=== PATIENT | female | born 1955 | race Caucasian/White ===

== ENCOUNTER 2018-06-03 15:40 | Observation (INO) | payer OTHER ==
[~2018-06-03 15:40] MED LIST: Ketorolac Tromethamine 30 MG/ML VIAL ONE; Ondansetron PF 4 MG/2 ML Vial ONE; PHENYLEPHRINE-NS 100 MCG/ML 10 ML SYRINGE ONE; PROPOFOL 200 MG/20 ML VIAL ONE; ePHEDrine/0.9% NaCl/PF SYRINGE 50 mg/10 ml ONE
[2018-06-03] MEDS ORDERED: Fentanyl 100 MCG/2 ML VIAL ONE ×3 (20:27→21:29)
[2018-06-03] MEDS ORDERED: Midazolam HCl 2 mg/2 ml Vial ONE ×3 (20:27→21:29)
[2018-06-03] MEDS ORDERED: Bupivacaine PF 0.5% 30 ML VIAL ONE (21:06)
[2018-06-03] MEDS ORDERED: Thrombin 5000 UNITS/5 ML VIAL ONE (21:06)
[2018-06-03] MEDS ORDERED: Bacitracin Zinc Ointment 30 gm TUBE ONE (21:06)
[2018-06-03] MEDS ORDERED: Sodium Chloride 0.9% 30 ML ONE (21:06)
[2018-06-03] MEDS ORDERED: Propofol 1,000 MG/100 ML VIAL IV ONE ×2 (21:08→21:29)
[2018-06-03] MEDS ORDERED: KETAMINE 100 MG/ML (5ML VIAL) ONE (21:08)
[2018-06-03] MEDS ORDERED: PROPOFOL 0 ML ONE (21:29)
[2018-06-03] MEDS ORDERED: Propofol 500 MG/50 ML VIAL ONE (21:29)
[2018-06-03] MEDS ORDERED: Famotidine/PF 20 mg/2ml Vial ONE (21:29)
[2018-06-03] MEDS ORDERED: CEFAZOLIN 2 GM/50 ML BAG ONE (21:33)
[2018-06-03] MEDS ORDERED: Promethazine HCl 25 MG/ML VIAL IM PRN (22:51)
[2018-06-03] MEDS ORDERED: Ondansetron HCl/PF 4 MG/2 ML Vial IVP PRN (22:51)
[2018-06-03] MEDS ORDERED: Promethazine HCl 25 MG/ML VIAL SLOW IVP PRN (22:51)
[2018-06-03] MEDS ORDERED: Meperidine HCl/PF 25 MG/ML VIAL SLOW IVP PRN (23:32)
--- NOTE | 2018-06-03 23:47 | RAD ---
RIGHT FIFTH DIGIT RADIOGRAPHS TWO VIEWS 06/03/18 PROVIDED CLINICAL HISTORY: Fracture. Fixation. FINDINGS: Spot fluoroscopic images of the right fifth digit demonstrates percutaneous pinning of fifth proximal phalangeal fracture. IMPRESSION: As above. POS: EDILMA
[2018-06-04] MEDS ORDERED: traMADol HCl 50 MG TAB PO PRN (00:19)
[2018-06-04] MEDS ORDERED: Ondansetron PF 4 MG/2 ML Vial IV PRN (00:19)
[2018-06-04] MEDS ORDERED: Acetaminophen 325 MG TAB PO PRN (00:19)
[2018-06-04] MEDS ORDERED: Milk Of Magnesia 30 ML UDCUP PO PRN (00:19)
[2018-06-04] MEDS ORDERED: Promethazine HCl 25 MG/ML VIAL IM PRN (00:19)
[2018-06-04] MEDS ORDERED: Bisacodyl 10 MG SUPP PR PRN (00:19)
[2018-06-04] MEDS ORDERED: HYDROcodone/Acetaminophen 5/325 mg Tablet PO PRN (00:19)
[2018-06-04] MEDS ORDERED: Meperidine HCl/PF 25 MG/ML VIAL IM PRN (00:22)
[2018-06-04] MEDS ORDERED: Communication Order-Pharmacy FS SCH (00:30)
[2018-06-04] MEDS ORDERED: TETANUS AND DIPHTHERIA TOX/PF 0.5 ML DISP.SYRIN IM SCH (00:30)
[2018-06-04] MEDS ORDERED: Morphine 4 MG/ML VIAL SLOW IVP PRN (01:00)
[2018-06-04] MEDS: Clindamycin/D5W 900 MG in Premix Bag 1 BAG IVPB SCH ×3 (02:05→17:03)
[2018-06-04 02:38] VITALS: BMI 28.3
[2018-06-04] MEDS: Ketorolac Tromethamine 30 MG/ML VIAL IVP SCH ×3 (06:25→17:04)
--- NOTE | 2018-06-04 07:03 | OP ---
DATE OF PROCEDURE: 06/03/2018 PREOPERATIVE DIAGNOSES: 1. Right small finger grade 2 proximal phalanx fracture secondary to a dog bite wound. 2. Partial extensor tendon laceration. 3. Intact flexor tendons. 4. Ulnar digital nerve laceration to mid portion of proximal phalanx. 5. Contamination of fracture. 6. Contamination of wound, palmar and dorsal with only a 15 mm skin bridge on the radial side of the small finger still intact. Here was a digital artery that kept the finger alive. PROCEDURES PERFORMED: 1. Debridement of wound. 2. Debridement of material associated with open fracture. 3. Open fracture treatment with fixation using K-wire x1. 4. Digital nerve neuroplasty of ulnar digital nerve. ANESTHESIA: General LMA technique augmented by block. DESCRIPTION OF PROCEDURE: After successful general LMA technique, the limb was prepped and draped. The patient then had time-out done appropriately. C-arm was brought to the field at this time, we first saw of angulation, but had a large palmar, which was extended, and then from here, we could visualize the fracture and we did that. The patient then had the incision extended distal proximal 1 cm and exposed first the palmar aspect where we found on a digital neuroplasty that the patient did have a complete digital nerve laceration on the ulnar aspect and that the digital nerve on the radial aspect was intact. This was at the proximal portion of the proximal phalanx, left small finger. We then visualized the pullley mass on A3 aniket that was intact as was the A2 and the tendon glide was excellent. Deep to this, there was distortion of architecture and there was no evidence of abscess formation, however. We then finished the dorsal debridement and we found subcutaneously some hematoma consistent with dog/animal bite along with some early mucopurulence, which we cultured right over the ulnar volar fashion. We then completed the neuroplasty, then went dorsal to extend the wound 1 cm proximal and 8 mm distal, so we could identify the defect, this mainly is created by the dog and deep to this was the fracture itself. We then grabbed the fracture from two ends with retraction, opened, booked the fracture, debrided it and curetted it, removed all materials associated with open fracture and then we turned once we had done all the debridement of the wound and the fracture using the following techniques; A - excision technique, B - using combination of [place] blade, curette, small tip, large tip, and the C-arm. The patient was prepared for final irrigation after first doing with 3 L of Pulsavac with antibiotics inside and the second the same composition and we then deflated the tourniquet. Once we deflated the tourniquet, we then placed the K-wire obliquely across the fracture line from distal ulnar to distal radial. There were no other abnormalities seen. Hemostasis was excellent. We only closed the portion of wound that was not part of the original fracture. Tourniquet was deflated. Hemostasis was excellent. The wire used to help internal fixation was cut below the skin and will be removed intraoperatively. The patient had only the portion of wound that we created closed with 4-0 nylon as well as the surgical sites. The patient left the operating room with the wounds closed, pink digits, and was placed in appropriate splint. Job ID: [id number]
[2018-06-04] MEDS ORDERED: Aspirin 81 mg Enteric Coated Tablet PO SCH (09:00)
[2018-06-04 15:31] VITALS: BP 134/80; TEMP 99.2
== END 2018-06-04 19:26 | disposition home or self-care (01) ==
LOC: SDC 15:40 → SURG B 06-04 00:30
PROVIDERS: ADMIT Orthopaedic Surgery Hand Surgery; ATTEND Orthopaedic Surgery Hand Surgery
PROC: 0JBJ0ZZ Excision of Right Hand Subcutaneous Tissue and Fascia, Open Approach (ICD-10-PCS; principal; 2018-06-04)
PROC: 01Q40ZZ Repair Ulnar Nerve, Open Approach (ICD-10-PCS; 2018-06-04)
PROC: 0PST04Z Reposition Right Finger Phalanx with Internal Fixation Device, Open Approach (ICD-10-PCS; 2018-06-04)
DX: S62.616B Displaced fracture of proximal phalanx of right little finger, initial encounter for open fracture (principal); S66.326A Laceration of extensor muscle, fascia and tendon of right little finger at wrist and hand level, initial encounter; S64.496A Injury of digital nerve of right little finger, initial encounter; B96.89 Other specified bacterial agents as the cause of diseases classified elsewhere; W54.0XXA Bitten by dog, initial encounter
CPT/HCPCS: 76000; 87070; 87077; 87205; 96365; 96366; 96375; 96376; G0378; J0131; J1885; J2250; J2405; J2704; J3010; J3490; S0020; S0028